=== PATIENT | female | born 1985 | race Two or more races ===

== ENCOUNTER 2017-12-24 21:13 | Emergency (ER) | payer OTHER ==
[~2017-12-24] VITALS: Ht 162.6 cm; Wt 54.4 kg
--- NOTE | 2017-12-24 21:36 | NUR ---
PT AMBULATORY TO ER BED 4, PT STATES SPOTTING X 1 DAY. 13 WKS . G1. PT AOX3 RR EVEN AND UNLABORED. NO SOB NOTED. NAD NOTED. NO NVD AT THIS TIME. PT GOWNED AND PLACED ON MONITOR WAITING FOR MD MOSE[place].
--- NOTE | 2017-12-24 21:40 | NUR ---
URINE COLLECTED. SENT TO LAB
--- NOTE | 2017-12-24 21:58 | NUR ---
PAC PRUSHA AT BEDSIDE FOR EVAL.
--- NOTE | 2017-12-24 22:11 | NUR ---
LAB AT BEDSIDE FOR BLOOD DRAW
[2017-12-24 22:19] LABS: BASOPHILS % (AUTO) 0.3 % (0.0-2.0); EOSINOPHILS # (AUTO) 0.2 /CMM (0.0-0.7); EOSINOPHILS % (AUTO) 1.9 % (0.0-6.0); HEMATOCRIT 36 % (33-45); HEMOGLOBIN 12.2 g/dL (11.5-14.8); LYMPHOCYTES # (AUTO) 2.6 /CMM (0.8-4.8); LYMPHOCYTES % (AUTO) 25.4 % (20.0-44.0); MEAN CORPUSCULAR HEMOGLOBIN 32 PG (26.0-33.0); MEAN CORPUSCULAR HGB CONC 34 g/dl (31.0-36.0); MEAN CORPUSCULAR VOLUME 95 fL (82-100); MONOCYTES # (AUTO) 0.5 /CMM (0.1-1.30); MONOCYTES % (AUTO) 5.2 % (2.0-12.0); NEUTROPHILS # (AUTO) 6.9 /CMM (1.8-8.9); NEUTROPHILS % (AUTO) 67.2 % (43.0-81.0); PLATELET COUNT (AUTO) 277 /CMM (150-450); RDW COEFFICIENT OF VARIATION 13.2 (11.5-15.0); RED BLOOD CELL COUNT(AUTO) 3.81 MIL/uL (4.0-5.2); WHITE BLOOD COUNT (AUTO) 10.3 K/uL (4.3-11.0)
[2017-12-24 22:23] LABS: APPEARANCE,URINE CLEAR (CLEAR); BILIRUBIN,URINE NEGATIVE (NEGATIVE); BLOOD, URINE 2+ Ery/uL (NEGATIVE); COLOR,URINE YELLOW (YELLOW); KETONES,URINE NEGATIVE (NEGATIVE); LEUKOCYTE ESTERASE ,URINE NEGATIVE (NEGATIVE); NITRITE, URINE NEGATIVE (NEGATIVE); PH,URINE 6.5 (5.0-8.0); PROTEIN,URINE NEGATIVE (NEGATIVE); UGLUCOSE NEGATIVE (NEGATIVE); UROBILINOGEN,URINE 0.2 EU/dL (0.2)
[2017-12-24 22:30] LABS: CALCIUM, SERUM 8.8 mg/dL (8.5-10.1); CREATININE 0.5 mg/dL (0.6-1.3); POTASSIUM 3.8 mmol/L (3.5-5.1)
[2017-12-24 22:46] LABS: ALBUMIN 3.3 g/dL (3.4-5.0); BILIRUBIN,DIRECT 0.1 mg/dL (0.0-0.2); BILIRUBIN,TOTAL 0.2 mg/dL (0.2-1.0); TOTAL PROTEIN, SERUM 7.8 g/dL (6.4-8.2)
[2017-12-24 22:53] LABS: BACTERIA,URINE None seen /HPF (None Seen); SQUAMOUS EPITHELIAL CELL,UR Moderate /HPF (None Seen); WBC,URINE 0-2 /HPF (0-3)
--- NOTE | 2017-12-24 22:53 | NUR ---
FABIOLA AT BEDSIDE
--- NOTE | 2017-12-24 23:17 | NUR ---
CALL FROM LAB. PT NOT CANDIDATE FOR RHOGAM
--- NOTE | 2017-12-25 01:33 | NUR ---
IV removed. Catheter intact and site benign. Pressure and 4x4 applied to site. No bleeding noted.Patient discharged to home in stable condition. Written and verbal after care instructions given. Patient verbalizes understanding of instruction. 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 PT AMBULATED OUT WITH A STEADY GAIT. VSS. NAD NOTED.
[2017-12-25 01:44] VITALS: BP 118/66
== END 2017-12-25 01:45 | disposition home or self-care (01) ==
LOC: ER 21:22
DX: O20.0 Threatened abortion (principal); Z3A.13 13 weeks gestation of pregnancy
CPT/HCPCS: 36415; 76856; 80048; 80076; 81001; 84702; 85025; 87086; 99285; A4606; Z7610; 81000-TC